=== PATIENT | male | born 1945 | race Hispanic/Latino ===

== ENCOUNTER 2021-12-25 03:31 | Emergency (ER) | payer MEDICARE | END 2021-12-25 04:09 | disposition home or self-care (01) | LOC: CSHERS 03:31 | DX: L76.22 Postprocedural hemorrhage of skin and subcutaneous tissue following other procedure (principal); I12.0 Hypertensive chronic kidney disease with stage 5 chronic kidney disease or end stage renal disease; N18.6 End stage renal disease; E78.5 Hyperlipidemia, unspecified | CPT/HCPCS: 99283 ==